=== PATIENT | male | born 1965 | race Caucasian/White ===

== ENCOUNTER 2018-05-06 15:13 | Inpatient (IN) | payer MEDICARE, OTHER ==
[~2018-05-06] VITALS: Ht 177.8 cm; Wt 95.3 kg
[2018-05-06] MEDS ORDERED: QUET50TA PO (15:45)
[2018-05-06] MEDS ORDERED: DIAZ10TA PO (15:45)
[2018-05-06] MEDS ORDERED: LISI40TA4 PO (15:45)
[2018-05-06 15:50] VITALS: BP 122/70
[2018-05-06 16:00] VITALS: BP 122/68
--- NOTE | 2018-05-06 16:05 | NUR ---
GPS/RN RECEDED PT ON 515 FOR DTS AND DTO DIRECT ADMIT FROM [facility]. ADMITTING ORDERS FROM DR LARES RECEIVED AND CARRIED OUT. DR YOUNG MADE AWARE OF ADMISSION. NO SI OR HI AT THE TIME OF ADMISSION. PT CHECKED FOR CONTRABAND. PT REFUSED TO SIGN THE ADMITTING PAPERWORK/CONSENTS. PT IS DELUSIONAL AND UNWILLING TO PROVIDE ANY MEANINGFUL HISTORY.
[2018-05-06] MEDS ORDERED: MAG HYDROX/AL HYDROX/SIMETH 30 ML UDC PO PRN (16:30)
[2018-05-06] MEDS ORDERED: ACETAMINOPHEN 325 MG TABLET PO PRN (16:30)
[2018-05-06] MEDS: QUETIAPINE FUMARATE 25 MG TABLET PO SCH (17:54)
[2018-05-06] MEDS: LITHIUM CARBONATE 150 MG CAPSULE PO SCH (17:54)
[2018-05-06 20:00] VITALS: BP 131/67
[2018-05-06] MEDS: QUETIAPINE FUMARATE 100 MG TABLET PO SCH (22:38)
[2018-05-06] MEDS: TEMAZEPAM 7.5 MG CAPSULE PO PRN (22:38)
[2018-05-07 07:06] LABS: ALBUMIN 3.2 g/dL (3.4-5.0); BILIRUBIN,TOTAL 0.3 mg/dL (0.2-1.0); CALCIUM, SERUM 8.9 mg/dL (8.5-10.1); CREATININE 0.9 mg/dL (0.6-1.3); POTASSIUM 4.2 mmol/L (3.5-5.1); TOTAL PROTEIN, SERUM 6.3 g/dL (6.4-8.2)
[2018-05-07 08:23] VITALS: BP 149/95
[2018-05-07] MEDS: LITHIUM CARBONATE 150 MG CAPSULE PO SCH ×4 (08:40→16:46)
[2018-05-07] MEDS: QUETIAPINE FUMARATE 25 MG TABLET PO SCH ×3 (08:40→16:46)
[2018-05-07] MEDS ORDERED: LISINOPRIL (10MG) 10 MG TABLET PO SCH (09:00)
[2018-05-07 09:26] LABS: CHOLESTEROL 120 mg/dL (<200); HDL CHOLESTEROL 46 mg/dL (40-60); LDL 63 mg/dL (0-99); TRIGLYCERIDES 92 mg/dL (30-150)
[2018-05-07 11:00] VITALS: BP 142/73
[2018-05-07] MEDS: LISINOPRIL (20MG) 20 MG TABLET PO SCH (11:05)
[2018-05-07 16:00] VITALS: BP 154/86
--- NOTE | 2018-05-07 17:02 | NUR ---
When offered the due meds of [place] and Seroquel pt. is hiding it under the tongue and when told to show under the tongue then he transferred the meds on the other part of the mouth, then he went to the bathroom and spitted the meds to his hands and drop it on his underwear. Pt. was verbally abusive, using bad words and delusional.
[2018-05-07 20:00] VITALS: BP 146/84
[2018-05-07] MEDS: TEMAZEPAM 7.5 MG CAPSULE PO PRN (21:32)
[2018-05-07] MEDS: QUETIAPINE FUMARATE 100 MG TABLET PO SCH (21:32)
[2018-05-08 08:00] VITALS: BP 134/55
[2018-05-08] MEDS: QUETIAPINE FUMARATE 25 MG TABLET PO SCH ×2 (08:02→16:26)
[2018-05-08] MEDS: LITHIUM CARBONATE 150 MG CAPSULE PO SCH ×3 (08:03→16:26)
[2018-05-08] MEDS: LISINOPRIL (20MG) 20 MG TABLET PO SCH (08:03)
[2018-05-08] MEDS: LORAZEPAM 0.5 MG TABLET PO PRN (15:17)
--- NOTE | 2018-05-08 15:18 | NUR ---
Pt. is responding to internal stimuli, talking to self loud. Pt. is delusional and telling that he is on his planet. Offered with Ativan and agreed.
[2018-05-08 16:00] VITALS: BP 149/90
[2018-05-08] MEDS ORDERED: QUETIAPINE FUMARATE 100 MG TABLET PO SCH (22:00)
[2018-05-09 08:00] VITALS: BP 131/70
[2018-05-09] MEDS: QUETIAPINE FUMARATE 25 MG TABLET PO SCH ×2 (08:56→16:56)
[2018-05-09] MEDS: LORAZEPAM 0.5 MG TABLET PO PRN (08:56)
[2018-05-09] MEDS: LITHIUM CARBONATE 150 MG CAPSULE PO SCH ×3 (08:57→16:56)
[2018-05-09] MEDS: LISINOPRIL (20MG) 20 MG TABLET PO SCH (08:57)
--- NOTE | 2018-05-09 12:52 | NUR ---
Initial Discharge Plan: Pt is currently homeless but stated that he has three mansions. Pt did not provide any contact information for his friends and family. SW will work with the pt and the MD regarding appropriate discharge planning. SW will form a safe and proper discharge plan.
[2018-05-09] MEDS: NICOTINE PATCH (21MG) 21 MG PATCH.TD24 TD SCH (13:46)
[2018-05-09] MEDS: MAGNESIUM HYDROXIDE 30 ML UDC PO PRN (13:53)
--- NOTE | 2018-05-09 13:56 | NUR ---
rn notes administered milk of magnesia 30 ml po prn for constipation.
[2018-05-09] MEDS ORDERED: diphenhydrAMINE HCL 50 MG/ML VIAL IM STA (14:16)
[2018-05-09] MEDS ORDERED: LORAZEPAM INJ 2 MG/ML VIAL IM STA (14:16)
[2018-05-09] MEDS ORDERED: HALOPERIDOL LACTATE INJ 5 MG/ML VIAL IM STA (14:16)
--- NOTE | 2018-05-09 14:20 | NUR ---
RN-CO: PAGED DR LARES TO OBTAIN AN ORDER. PATIENT IS HIGHLY DELUSIONAL, YELLING AND SCREAMING AND PROVOKING OTHER PATIENT FOR A FIGHT. MD CALLED BACK WITH ORDERS NOTED AND CARRIED OUT.
--- NOTE | 2018-05-09 14:20 | NUR ---
RN NOTES PATIENT IN THE HALLWAY, DELUSIONAL. PARANOID, YELLING. HALLUCINATING, HARD TO FOLLOW DIRECTION, COMBATIVE, CALLED DR LARES AND GET TO ORDER HALDOL 10 MG/ML IM X1, APVHLS2RH/ML IMX1, AND BENADRYL 50 MG/ML IM X1 NOW. ORDER TAKEN AND CARRIED OUT.
--- NOTE | 2018-05-09 14:22 | NUR ---
RN NOTES ADMINISTERED ATIVAN 2MG/ML IM, HALDOL 10MG/ML IM, AND BENADRYL 50 MG/ML IN X1, LEFT OUTER GLUTEAL AREA. CALLED TWO SECURITY, AND TWO RETAIL ACCOUNT MANAGER 'A FOR HOLDING PATIENT DOWN FOR INJECTION. PATIENT YELLING, THREATENING PATIENTS AND ONE OF RN. PATIENT REFUSED V/S TO BE TAKEN. CONTINUED MONITORING FOR SAFETY.
--- NOTE | 2018-05-09 15:00 | NUR ---
RN NOTES PATIENT CHECKING MEDICATION, DR LARES AWARE OF, PLEASE FOLLOW UP.
[2018-05-09 16:00] VITALS: BP 111/71
--- NOTE | 2018-05-09 19:30 | NUR ---
GPS RN NOTE, RECEIVED PATIENT AWAKE AND IN BED, NO S/S OR COMPLAINTS OF PAIN AT THIS TIME. PATIENT IS DISPLAYING NO S/S OF APPARENT DISTRESS AT THIS TIME. PATIENT BREATHING IS UNLABORED WITH EQUAL RISE AND FALL OF THE CHEST. PATIENT IS ALERT AND ORIENTED X 1-2 ON ROOM AIR WITH A SPO2 OF 98%. PATIENT IS COMPLIANT WITH MEDICATION, COOPERATIVE, ANXIOUS, DISORGANIZED, PARANOID, AND NEEDS REDIRECTION. PATIENT IS CONFUSED BUT DENIES SUICIDE IDEATIONS AND HOMICIDAL IDEATIONS AT THIS TIME. PATIENT ASSISTED WITH TURNING AND REPOSITIONING Q 2HRS AND PRN FOR COMFORT AND CIRCULATION. PATIENT HAS NO NEEDS AT THIS TIME. PATIENT EDUCATED ON THE USE OF THE CALL HART. PATIENT BED SIDE RAILS UP X 2 FOR SAFETY, BED IS LOCKED, LOW, AND I WILL CONTINUE TO MONITOR AND MAINTAIN SAFETY Q15 MIN WITH THE HELP OF STAFF.
[2018-05-09 20:15] VITALS: BP 129/65
[2018-05-09] MEDS: QUETIAPINE FUMARATE 100 MG TABLET PO SCH (21:35)
[2018-05-10] MEDS: MAGNESIUM HYDROXIDE 30 ML UDC PO PRN (06:38)
--- NOTE | 2018-05-10 06:38 | NUR ---
GPS RN NOTE, PATIENT HAS A COMPLAINT OF CONSTIPATION AND IS REQUESTING MILK OF MAGNESIA AT THIS TIME. PATIENT VITAL SIGNS ARE STABLE. GAVE MILK OF MAGNESIA 30 ML PO Q12HR PRN ORDERED. WILL REASSESS FOR CONSTIPATION AND I WILL CONTINUE TO MONITOR THIS PATIENT.
[2018-05-10 08:00] VITALS: BP 143/91
[2018-05-10] MEDS: LISINOPRIL (20MG) 20 MG TABLET PO SCH (09:22)
[2018-05-10] MEDS: NICOTINE PATCH (21MG) 21 MG PATCH.TD24 TD SCH (09:23)
[2018-05-10] MEDS: LITHIUM CARBONATE 150 MG CAPSULE PO SCH ×2 (09:23→17:12)
[2018-05-10] MEDS: QUETIAPINE FUMARATE 25 MG TABLET PO SCH ×2 (09:24→17:12)
[2018-05-10] MEDS ORDERED: HALOPERIDOL DECANOATE IM 100 MG/ML AMPUL IM ONE (11:30)
--- NOTE | 2018-05-10 12:15 | NUR ---
SW spoke to the pt and asked him for his brother's contact information so that we can verify his current address. Pt stated that he will not give his brother's information to anyone and that his brother does not even know where he lives.
[2018-05-10 16:00] VITALS: BP 145/49
[2018-05-10 20:00] VITALS: BP 125/93
[2018-05-10] MEDS: QUETIAPINE FUMARATE 100 MG TABLET PO SCH (21:49)
[2018-05-10] MEDS: TEMAZEPAM 7.5 MG CAPSULE PO PRN (21:50)
--- NOTE | 2018-05-10 22:24 | NUR ---
TEMAZEPAM 15 MG CAP PO GIVEN FOR SLEEP. PATIENT IS HYPERVERBAL, AMBULATING AT THE HALLWAY, NOT SLEEPING, MUMBLING, TALKS TO SELF, RESPONDS TO INTERNAL STIMULI.
[2018-05-11] MEDS: MAGNESIUM HYDROXIDE 30 ML UDC PO PRN (00:50)
[2018-05-11 08:00] VITALS: BP 126/85
[2018-05-11] MEDS: QUETIAPINE FUMARATE 25 MG TABLET PO SCH ×2 (09:21→17:59)
[2018-05-11] MEDS: LITHIUM CARBONATE 150 MG CAPSULE PO SCH ×2 (09:21→18:00)
[2018-05-11] MEDS: LISINOPRIL (20MG) 20 MG TABLET PO SCH (09:22)
[2018-05-11] MEDS: LORAZEPAM 0.5 MG TABLET PO PRN ×2 (09:22→18:00)
[2018-05-11] MEDS: NICOTINE PATCH (21MG) 21 MG PATCH.TD24 TD SCH (09:22)
--- NOTE | 2018-05-11 10:36 | NUR ---
JAMIE ([phone]) from [facility] stated that their automotive warranty administrator would like to assess the pt before either accepting or denying him.
--- NOTE | 2018-05-11 10:36 | NUR ---
LASHAWN faxed a referral to [facility] with attention to JAMIE and Brayan to the fax number: [phone].
[2018-05-11 16:00] VITALS: BP 139/89
[2018-05-11 20:00] VITALS: BP 165/85
[2018-05-11] MEDS: QUETIAPINE FUMARATE 100 MG TABLET PO SCH (21:45)
[2018-05-12] MEDS: LORAZEPAM 0.5 MG TABLET PO PRN (06:40)
--- NOTE | 2018-05-12 06:40 | NUR ---
PATIENT AGITATED, LOUD, YELLING AND SCREAMING, RESPONDING TO INTERNAL STIMULI, ATIVAN 1 MG TAB PO GIVEN.
[2018-05-12 08:00] VITALS: BP 125/83
[2018-05-12] MEDS: LITHIUM CARBONATE 150 MG CAPSULE PO SCH ×2 (08:26→16:51)
[2018-05-12] MEDS: LISINOPRIL (20MG) 20 MG TABLET PO SCH (08:27)
[2018-05-12] MEDS: QUETIAPINE FUMARATE 25 MG TABLET PO SCH (08:27)
[2018-05-12] MEDS: NICOTINE PATCH (21MG) 21 MG PATCH.TD24 TD SCH (08:27)
--- NOTE | 2018-05-12 09:29 | NUR ---
Discharge update: SW called the home phone number that was listed on the face sheet ([phone]) but the number was disconnected. The SW also looked up the address that was listed on the face sheet [place] [address] [place] [address]. The pt is also still refusing to provide his brother's phone number to verify whether or not this address is accurate for the pt. Due to the pt's delusional statements (ex: I own three large mansions in [place] and I am to seven different actresses), it appears to be probable that the pt is homeless. LASHAWN will provide the pt with homeless long term referrals and resources if an address cannot be verified at discharge.
[2018-05-12] MEDS: OLANZAPINE 5 MG/TAB.RAPDIS PO SCH (11:26)
[2018-05-12 16:00] VITALS: BP 155/95
[2018-05-12 20:02] VITALS: BP 149/91
[2018-05-12] MEDS: TEMAZEPAM 7.5 MG CAPSULE PO PRN (21:42)
[2018-05-13] MEDS ORDERED: LORAZEPAM INJ 2 MG/ML VIAL IM STA ×2 (00:35→00:39)
[2018-05-13] MEDS ORDERED: diphenhydrAMINE HCL 50 MG/ML VIAL IM STA (00:35)
[2018-05-13] MEDS ORDERED: HALOPERIDOL LACTATE INJ 5 MG/ML VIAL IM STA (00:35)
--- NOTE | 2018-05-13 00:57 | NUR ---
GPS RN NOTES PT VERY AGITATED, RESTLESS, DELUSIONAL, AGGRESSIVE AND COMBATIVE. NOTIFIED DR. LARES. WITH NEW ORDERS MADE. ORDERS NOTED AND CARRIED OUT. WILL CONTINUE TO MONITOR.
[2018-05-13 07:10] LABS: CREATININE 0.8 mg/dL (0.6-1.3); POTASSIUM 4.2 mmol/L (3.5-5.1)
[2018-05-13 07:12] LABS: BASOPHILS % (AUTO) 0.3 % (0.0-2.0); EOSINOPHILS % (AUTO) 1.8 % (0.0-6.0); HEMATOCRIT 42 % (39-51); HEMOGLOBIN 14.2 g/dL (13.5-17.5); LYMPHOCYTES # (AUTO) 1.1 /CMM (0.8-4.8); LYMPHOCYTES % (AUTO) 17.5 % (20.0-44.0); MEAN CORPUSCULAR HGB CONC 34 g/dl (31.0-36.0); MEAN CORPUSCULAR VOLUME 91 fL (80-96); MONOCYTES # (AUTO) 0.8 /CMM (0.1-1.30); MONOCYTES % (AUTO) 11.7 % (2.0-12.0); NEUTROPHILS # (AUTO) 4.4 /CMM (1.8-8.9); NEUTROPHILS % (AUTO) 68.7 % (43.0-81.0); PLATELET COUNT (AUTO) 230 /CMM (150-450); RED BLOOD CELL COUNT(AUTO) 4.65 MIL/uL (4.5-6.0); WHITE BLOOD COUNT (AUTO) 6.4 K/uL (4.3-11.0)
[2018-05-13 08:00] VITALS: BP 136/76
[2018-05-13] MEDS: NICOTINE PATCH (21MG) 21 MG PATCH.TD24 TD SCH (08:17)
[2018-05-13] MEDS: OLANZAPINE 5 MG/TAB.RAPDIS PO SCH (08:19)
[2018-05-13] MEDS: LISINOPRIL (20MG) 20 MG TABLET PO SCH (08:19)
[2018-05-13] MEDS: LITHIUM CARBONATE 150 MG CAPSULE PO SCH ×2 (08:19→16:07)
[2018-05-13 16:00] VITALS: BP 132/74
--- NOTE | 2018-05-13 18:47 | NUR ---
GPS/RN-NOTES NO URINE COLLECTED THIS SHIFT FOR [facility] ORDER.SPECIMEN CUP WAS PROVIDED TO PATIENT. PATIENT WAS AWARE ,UNABLE TO PROVIDE THIS SHIFT STATED" I FORGOT TO FILL THE CUP, I'LL FILL IT LATER". ENDORSE TO INCOMING NURSE FOR URINE COLLECTION AND CONTINUITY OF CARE.
[2018-05-13 20:00] VITALS: BP 119/84
--- NOTE | 2018-05-13 20:00 | NUR ---
RN NOTES RECEIVED PATIENT AWAKE AND IN BED, NO S/S OR COMPLAINTS OF PAIN AT THIS TIME. PATIENT HAS NO S/S OF APPARENT DISTRESS AT THIS TIME. PATIENT BREATHING IS UNLABORED WITH EQUAL RISE AND FALL OF THE CHEST. PATIENT IS ALERT AND ORIENTED X 1-2 ON ROOM AIR WITH A SPO2 OF 98%PATIENT IS COMPLIANT WITH MEDICATION, COOPERATIVE, ANXIOUS, DISORGANIZED, PARANOID, AND NEEDS REDIRECTION. PATIENT IS CONFUSED BUT DENIES SUICIDE IDEATIONS AND HOMICIDAL IDEATIONS AT THIS TIME. PATIENT EDUCATED ON THE USE OF THE CALL HART. PATIENT BED SIDE RAILS UP X 2 FOR SAFETY, BED IS LOCKED, LOW, AND I WILL CONTINUE TO MONITOR AND MAINTAIN SAFETY Q15 MIN WITH THE HELP OF STAFF.
--- NOTE | 2018-05-13 20:15 | NUR ---
URIN HAS BEEN COLLECTED BY MD EPPS FOR [facility]. CALLED LAB TO PICK IT UP.
[2018-05-14 07:06] LABS: APPEARANCE,URINE CLEAR (CLEAR); BILIRUBIN,URINE NEGATIVE (NEGATIVE); BLOOD, URINE NEGATIVE Ery/uL (NEGATIVE); COLOR,URINE YELLOW (YELLOW); KETONES,URINE NEGATIVE (NEGATIVE); LEUKOCYTE ESTERASE ,URINE NEGATIVE (NEGATIVE); NITRITE, URINE NEGATIVE (NEGATIVE); PH,URINE 7.5 (5.0-8.0); PROTEIN,URINE NEGATIVE (NEGATIVE); UGLUCOSE NEGATIVE (NEGATIVE)
[2018-05-14 08:00] VITALS: BP 141/91
[2018-05-14] MEDS: LITHIUM CARBONATE 150 MG CAPSULE PO SCH ×2 (08:50→17:20)
[2018-05-14] MEDS: LORAZEPAM 0.5 MG TABLET PO PRN ×2 (08:52→17:24)
[2018-05-14] MEDS: LISINOPRIL (20MG) 20 MG TABLET PO SCH (08:52)
--- NOTE | 2018-05-14 08:52 | NUR ---
rn notes administered ativan 1 mg po prn for anxiety, yelling, paranoia, v/s taken bp -125/ 77, p-78. continued monitoring.
[2018-05-14] MEDS: NICOTINE PATCH (21MG) 21 MG PATCH.TD24 TD SCH (08:53)
[2018-05-14] MEDS ORDERED: OLANZAPINE 5 MG/TAB.RAPDIS PO SCH (09:00)
[2018-05-14 10:07] LABS: BACTERIA,URINE None seen /HPF (None Seen); RBC,URINE NONE SEEN /HPF (0-2); SQUAMOUS EPITHELIAL CELL,UR Few /HPF (None Seen); WBC,URINE NONE SEEN /HPF (0-3)
[2018-05-14 16:00] VITALS: BP 144/67
[2018-05-14] MEDS: OLANZAPINE 5 MG/TAB.RAPDIS PO SCH (17:19)
--- NOTE | 2018-05-14 17:24 | NUR ---
RN NOTES ADMINISTERED ATIVAN 1 MG PO PRN FOR ANXIETY, PER PATIENT REQUEST, V/S TAKEN BP-100/56, P-88, CONTINUED MONITORING.
[2018-05-14 20:00] VITALS: BP 117/64
[2018-05-15 08:03] VITALS: BP 168/99
[2018-05-15] MEDS: LORAZEPAM 0.5 MG TABLET PO PRN ×2 (09:01→16:30)
[2018-05-15] MEDS: OLANZAPINE 5 MG/TAB.RAPDIS PO SCH ×2 (09:01→16:29)
[2018-05-15] MEDS: LITHIUM CARBONATE 150 MG CAPSULE PO SCH ×2 (09:02→16:29)
[2018-05-15] MEDS: LISINOPRIL (20MG) 20 MG TABLET PO SCH (09:02)
[2018-05-15] MEDS: NICOTINE PATCH (21MG) 21 MG PATCH.TD24 TD SCH (09:10)
[2018-05-15 16:11] VITALS: BP 163/76
--- NOTE | 2018-05-15 19:30 | NUR ---
GPS RN NOTE, RECEIVED PATIENT AWAKE AND IN BED, NO S/S OR COMPLAINTS OF PAIN AT THIS TIME. PATIENT IS DISPLAYING NO S/S OF APPARENT DISTRESS AT THIS TIME. PATIENT BREATHING IS UNLABORED WITH EQUAL RISE AND FALL OF THE CHEST. PATIENT IS ALERT AND ORIENTED X 1-2 ON ROOM AIR WITH A SPO2 OF 96%. PATIENT IS COMPLIANT WITH MEDICATION, COOPERATIVE, ANXIOUS, DISORGANIZED, PARANOID, AND NEEDS REDIRECTION. PATIENT IS CONFUSED BUT DENIES SUICIDE IDEATIONS AND HOMICIDAL IDEATIONS AT THIS TIME. PATIENT ASSISTED WITH TURNING AND REPOSITIONING Q 2HRS AND PRN FOR COMFORT AND CIRCULATION. PATIENT HAS NO NEEDS AT THIS TIME. PATIENT EDUCATED ON THE USE OF THE CALL HART. PATIENT BED SIDE RAILS UP X 2 FOR SAFETY, BED IS LOCKED, LOW, AND I WILL CONTINUE TO MONITOR AND MAINTAIN SAFETY Q15 MIN WITH THE HELP OF STAFF.
[2018-05-15 20:31] VITALS: BP 124/62
[2018-05-15] MEDS: TEMAZEPAM 7.5 MG CAPSULE PO PRN (22:19)
--- NOTE | 2018-05-15 22:19 | NUR ---
GPS RN NOTE, PATIENT HAS A COMPLAINT OF NOT BEING ABLE TO SLEEP AND IS REQUESTING RESTORIL AT THIS TIME. PATIENT VITAL SIGNS ARE STABLE. GAVE RESTORIL 15MG PO HS ORDERED. WILL REASSESS FOR INSOMNIA AND I WILL CONTINUE TO MONITOR THIS PATIENT.
[2018-05-16 08:00] VITALS: BP 131/76
[2018-05-16] MEDS: OLANZAPINE 5 MG/TAB.RAPDIS PO SCH ×2 (09:15→17:27)
[2018-05-16] MEDS: LITHIUM CARBONATE 150 MG CAPSULE PO SCH ×2 (09:16→17:27)
[2018-05-16] MEDS: LISINOPRIL (20MG) 20 MG TABLET PO SCH (09:18)
[2018-05-16] MEDS: NICOTINE PATCH (21MG) 21 MG PATCH.TD24 TD SCH (09:19)
[2018-05-16] MEDS: LORAZEPAM 0.5 MG TABLET PO PRN (10:44)
[2018-05-16] MEDS ORDERED: LORAZEPAM 1 MG TABLET PO PRN (14:00)
[2018-05-16 16:00] VITALS: BP 118/68
[2018-05-16 20:00] VITALS: BP 127/67
[2018-05-16] MEDS: TEMAZEPAM 7.5 MG CAPSULE PO PRN (23:28)
[2018-05-17 08:00] VITALS: BP 141/79
[2018-05-17] MEDS: LITHIUM CARBONATE 150 MG CAPSULE PO SCH ×2 (08:39→17:36)
[2018-05-17] MEDS: OLANZAPINE 5 MG/TAB.RAPDIS PO SCH (08:40)
[2018-05-17] MEDS: LISINOPRIL (20MG) 20 MG TABLET PO SCH (08:40)
[2018-05-17] MEDS: NICOTINE PATCH (21MG) 21 MG PATCH.TD24 TD SCH (09:19)
--- NOTE | 2018-05-17 14:09 | NUR ---
Discharge Planning Note: Brayan from [facility] came to speak with the patient about the facility, and patient is agreeable to discharging there [Address: [address] [place] [address]; ]. SW placed call to pt's brother, Cole ([phone]) to confirm patient's background and living situation. Per brother, the patient is homeless and "has delusions about celebrities and money when he's off his meds." Per brother, the patient had been living in [place], [place] close to him in a trailer and was "stable and taking his meds for about 2 years." Pt's brother expressed concern about patient's current medications and asked this typewriter ribbon winder to leave a message for Dr. Montemayor to call him. SW informed brother that a message will be left. SW will continue to follow-up with pt's brother.
[2018-05-17] MEDS: LORAZEPAM 0.5 MG TABLET PO PRN (14:20)
--- NOTE | 2018-05-17 14:37 | NUR ---
VERY AGITATED AT THIS TIME AND GIVEN ATIVAN 1 MG PO.
[2018-05-17 16:00] VITALS: BP 127/76
--- NOTE | 2018-05-17 16:18 | NUR ---
DR. LARES IN AND ADDITIONAL MEDS ADDED,PT. WAS THINKING HE WAS TO BE DISCHARGED.
[2018-05-17] MEDS: chlorproMAZINE HCL 25 MG TABLET PO SCH ×2 (17:36→21:25)
[2018-05-17 20:00] VITALS: BP 102/70
[2018-05-18 08:00] VITALS: BP 131/53
[2018-05-18] MEDS: LITHIUM CARBONATE 150 MG CAPSULE PO SCH ×2 (08:46→17:15)
[2018-05-18] MEDS: chlorproMAZINE HCL 25 MG TABLET PO SCH ×4 (08:47→20:55)
[2018-05-18] MEDS: NICOTINE PATCH (21MG) 21 MG PATCH.TD24 TD SCH (08:47)
[2018-05-18] MEDS: LISINOPRIL (20MG) 20 MG TABLET PO SCH (08:47)
[2018-05-18 16:00] VITALS: BP 121/72
--- NOTE | 2018-05-18 16:05 | NUR ---
LASHAWN called the pt's local brother, Buddy Lee ([phone]), and he stated that he does not want to be involved in his brother's treatment because he feels that his brother is unsafe and he wants to protect his own family.
[2018-05-18 20:14] VITALS: BP 126/72
[2018-05-18] MEDS: TEMAZEPAM 7.5 MG CAPSULE PO PRN (21:32)
[2018-05-19 08:00] VITALS: BP 132/71
[2018-05-19] MEDS: LORAZEPAM 0.5 MG TABLET PO PRN ×2 (08:56→20:40)
[2018-05-19] MEDS: LITHIUM CARBONATE 150 MG CAPSULE PO SCH ×2 (08:56→16:33)
[2018-05-19] MEDS: LISINOPRIL (20MG) 20 MG TABLET PO SCH (08:57)
[2018-05-19] MEDS: chlorproMAZINE HCL 25 MG TABLET PO SCH ×4 (08:58→20:40)
[2018-05-19] MEDS: NICOTINE PATCH (21MG) 21 MG PATCH.TD24 TD SCH (08:58)
[2018-05-19 16:00] VITALS: BP 109/62
--- NOTE | 2018-05-19 19:44 | NUR ---
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 AMBULATORY, STEADY GAIT. RESTING IN HIS ROOM, MUMBLING TO SELF AT THIS TIME. WILL CONTINUE TO MONITOR Q 15 MINS. TO MAINTAIN SAFETY.
[2018-05-19 20:00] VITALS: BP 117/86
[2018-05-20 08:00] VITALS: BP 100/59
[2018-05-20] MEDS: LISINOPRIL (20MG) 20 MG TABLET PO SCH (08:32)
[2018-05-20] MEDS: NICOTINE PATCH (21MG) 21 MG PATCH.TD24 TD SCH (08:41)
[2018-05-20] MEDS: chlorproMAZINE HCL 25 MG TABLET PO SCH ×4 (08:41→22:18)
[2018-05-20] MEDS: LITHIUM CARBONATE 150 MG CAPSULE PO SCH ×2 (08:42→16:27)
--- NOTE | 2018-05-20 15:48 | NUR ---
SW conducted a substance abuse intervention with the pt regarding his methamphetamine use.
[2018-05-20 15:57] VITALS: BP 134/86
[2018-05-20 20:20] VITALS: BP 140/79
[2018-05-20] MEDS: LORAZEPAM 0.5 MG TABLET PO PRN (20:54)
--- NOTE | 2018-05-20 20:57 | NUR ---
ATIVAN 1 MG PO GIVEN FOR ANXIETY.
[2018-05-21] MEDS: NICOTINE PATCH (21MG) 21 MG PATCH.TD24 TD SCH (07:45)
[2018-05-21] MEDS: LORAZEPAM 0.5 MG TABLET PO PRN ×2 (07:45→21:44)
[2018-05-21] MEDS: LITHIUM CARBONATE 150 MG CAPSULE PO SCH ×2 (07:45→17:34)
[2018-05-21] MEDS: LISINOPRIL (20MG) 20 MG TABLET PO SCH (07:45)
[2018-05-21 08:00] VITALS: BP 108/61
[2018-05-21] MEDS: chlorproMAZINE HCL 25 MG TABLET PO SCH ×4 (08:40→21:44)
--- NOTE | 2018-05-21 10:46 | NUR ---
THORAZINE GIVEN LATE UNAVAILABLE BY PHARMACY.
--- NOTE | 2018-05-21 13:30 | NUR ---
STILL TALKING ABOUT GOING HOME-DR. PENA IN AND PT. REQUESTED OF DR. PENA TO BE DC'D TODAY.DR. LARES CALLED NO DISCHARGE ORDER-HALDOL DECANOATE ORDERED.
[2018-05-21] MEDS ORDERED: HALOPERIDOL DECANOATE IM 100 MG/ML AMPUL IM ONE (15:00)
[2018-05-21 15:47] VITALS: BP 134/81
--- NOTE | 2018-05-21 16:01 | NUR ---
HALDOL INJECTION IM GIVEN.
[2018-05-21 20:00] VITALS: BP 116/75
--- NOTE | 2018-05-21 21:47 | NUR ---
ATIVAN 1 MG PO GIVEN FOR ANXIETY.
[2018-05-22 08:00] VITALS: BP 126/73
[2018-05-22] MEDS: LITHIUM CARBONATE 150 MG CAPSULE PO SCH ×2 (08:41→17:40)
[2018-05-22] MEDS: LISINOPRIL (20MG) 20 MG TABLET PO SCH (08:41)
[2018-05-22] MEDS: LORAZEPAM 0.5 MG TABLET PO PRN ×2 (08:41→17:40)
[2018-05-22] MEDS: NICOTINE PATCH (21MG) 21 MG PATCH.TD24 TD SCH (08:41)
[2018-05-22] MEDS: chlorproMAZINE HCL 25 MG TABLET PO SCH ×3 (08:42→21:36)
[2018-05-22 16:00] VITALS: BP 120/67
[2018-05-22 20:02] VITALS: BP 130/74
[2018-05-23 08:00] VITALS: BP 103/55
[2018-05-23] MEDS: NICOTINE PATCH (21MG) 21 MG PATCH.TD24 TD SCH (08:02)
[2018-05-23] MEDS: LISINOPRIL (20MG) 20 MG TABLET PO SCH (08:04)
[2018-05-23] MEDS: chlorproMAZINE HCL 25 MG TABLET PO SCH ×3 (08:06→21:13)
[2018-05-23] MEDS: LITHIUM CARBONATE 150 MG CAPSULE PO SCH ×2 (09:08→16:26)
--- NOTE | 2018-05-23 12:51 | NUR ---
SW spoke to the pt about his discharge plan of being placed in a fpc facility and he stated that he wants to be discharged as soon as possible because he does not want to be in the hospital any longer.
[2018-05-23 16:00] VITALS: BP 149/95
--- NOTE | 2018-05-23 16:27 | NUR ---
LASHAWN called Buddy Lee ([phone]), pt's brother, and informed him via a message on his voicemail that the pt will be discharged tomorrow.
[2018-05-23] MEDS: LORAZEPAM 0.5 MG TABLET PO PRN (17:06)
[2018-05-23 19:53] VITALS: BP 119/76
[2018-05-24 08:00] VITALS: BP 132/84
[2018-05-24] MEDS: NICOTINE PATCH (21MG) 21 MG PATCH.TD24 TD SCH (09:45)
[2018-05-24] MEDS: chlorproMAZINE HCL 25 MG TABLET PO SCH (09:45)
[2018-05-24] MEDS: LITHIUM CARBONATE 150 MG CAPSULE PO SCH (09:45)
[2018-05-24 09:46] VITALS: BP 132/84
[2018-05-24] MEDS: LISINOPRIL (20MG) 20 MG TABLET PO SCH (09:46)
--- NOTE | 2018-05-24 10:53 | NUR ---
Discharge note: Patient left the unit at 1000 with ambulance service. Patient denies si/hi during discharge. medically stable. Psychiatrist order dc order, dc hold, and meds for patient. commissary production supervisor made aware and cont meds. belongings signed for and gave to patient. skin assessment and pictures refused. report given to paolo trejo [facility]. exit care papers signed and explained to the patient.
--- NOTE | 2018-05-25 09:55 | NUR ---
Discharge Note: Pt was discharged to [facility] located at [address] [place] [address] ([phone]). Pt was transported via [facility] (Trip #[id number]) at 11AM. Pts brother, Cole ([phone]), was notified of this discharge. Upon discharge, the pt denied both suicidal and homicidal ideation as well as auditory and visual hallucinations. Pt appeared to be in a euthymic mood and presented with a calm affect. Pt stated, I am so happy I get to leave today, I have been here for too long. Pt will be under the care of psychiatrist, Dr. Montemayor, located at [address] [place] [address]; and station installer and repairer, Dr. Beal, located at [address] [place] [address]; . Pt will continue to address his substance use and smoking behavior with his psychiatrist and station installer and repairer. also provided referrals for the pt upon discharge which are located below. Substance Abuse Referrals: [facility] [address] [address] [facility] [address] [place] Provider Mental Health Treatment Tele-dermatology HIV Services Telemedicine Services [place] [address] [place] [address] [facility] [address] [place] [address] Smoking Cessation Referrals: [facility] 800-LUNGUSA [facility] [phone]
--- NOTE | 2018-06-07 11:44 | NUR ---
15 Day Substance Abuse Follow Up: Pt is exempt for the 15 Day Substance Abuse Follow Up due to his discharge to a shelter facility called [facility].
[2018-06-10] MEDS ORDERED: HALOPERIDOL DECANOATE IM 100 MG/ML AMPUL IM ONE (09:00)
[2018-06-17] MEDS ORDERED: HALOPERIDOL DECANOATE IM 100 MG/ML AMPUL IM SCH (09:00)
[2018-06-20] MEDS ORDERED: HALOPERIDOL DECANOATE IM 100 MG/ML AMPUL IM ONE (17:30)
[2018-06-22] MEDS ORDERED: HALOPERIDOL DECANOATE IM 100 MG/ML AMPUL IM SCH (09:00)
== END 2018-05-24 12:28 | DRG 885 ==
LOC: GPS 15:24
PROVIDERS: ADMIT Psychiatry & Neurology Psychiatry; ATTEND Psychiatry & Neurology Psychiatry
DX: F25.0 Schizoaffective disorder, bipolar type (principal); E44.1 Mild protein-calorie malnutrition; F29 Unspecified psychosis not due to a substance or known physiological condition; F12.10 Cannabis abuse, uncomplicated; I10 Essential (primary) hypertension; Z59.0 Homelessness; Z87.891 Personal history of nicotine dependence; F15.10 Other stimulant abuse, uncomplicated; E88.09 Other disorders of plasma-protein metabolism, not elsewhere classified
CPT/HCPCS: 36415; 80048-TC; 80053-TC; 80061-TC; 81000-TC; 85025-TC; J1200; J1630; J1631; J2060; Q0161